=== PATIENT | female | born 1995 | race African-American/Black ===

== ENCOUNTER 2017-01-05 17:49 | Emergency (ER) | payer BC ==
[~2017-01-05] VITALS: Ht 160 cm; Wt 81.7 kg
[2017-01-05] MEDS ORDERED: NAPROSYN500 MG PO (18:37)
[2017-01-05 19:06] VITALS: BP 130/76
== END 2017-01-05 19:07 | disposition home or self-care (01) ==
LOC: ER 17:49
DX: M71.5 Other bursitis, not elsewhere classified (principal)